=== PATIENT | female | born 1970 | race Caucasian/White ===

== ENCOUNTER 2022-04-23 07:40 | Outpatient (RCR) | payer OTHER | END 2022-04-28 | LOC: OT 07:40 | PROVIDERS: ATTEND Plastic Surgery | DX: M18.12 Unilateral primary osteoarthritis of first carpometacarpal joint, left hand (principal); M25.542 Pain in joints of left hand ==

== ENCOUNTER → 2022-12-02 | Outpatient (CLI) | payer OTHER | LOC: RAD 10:27 | PROVIDERS: ATTEND Family Medicine | DX: M19.042 Primary osteoarthritis, left hand (principal); M19.041 Primary osteoarthritis, right hand ==

== ENCOUNTER 2024-02-01 09:49 | Outpatient (RCR) | payer OTHER | END 2024-02-27 | LOC: OT 09:49 | PROVIDERS: ATTEND Plastic Surgery | DX: M18.12 Unilateral primary osteoarthritis of first carpometacarpal joint, left hand (principal); M79.642 Pain in left hand; M25.532 Pain in left wrist ==